=== PATIENT | male | born 1975 | race Caucasian/White ===

== ENCOUNTER 2019-07-05 11:10 | Emergency (ER) | payer MEDICARE | END 2019-07-05 11:58 | disposition home or self-care (01) | LOC: MADERS 11:10 | DX: L76.34 Postprocedural seroma of skin and subcutaneous tissue following other procedure (principal); S01.01XD Laceration without foreign body of scalp, subsequent encounter; S05.12XD Contusion of eyeball and orbital tissues, left eye, subsequent encounter; K21.9 Gastro-esophageal reflux disease without esophagitis; G62.9 Polyneuropathy, unspecified; F41.9 Anxiety disorder, unspecified; F17.290 Nicotine dependence, other tobacco product, uncomplicated; N19 Unspecified kidney failure; Z99.2 Dependence on renal dialysis; V89.2XXD Person injured in unspecified motor-vehicle accident, traffic, subsequent encounter | CPT/HCPCS: 99283 ==

== ENCOUNTER 2019-10-13 19:05 | Emergency (ER) | payer MEDICARE | END 2019-10-13 19:58 | disposition home or self-care (01) | LOC: MADERS 19:05 | DX: J30.2 Other seasonal allergic rhinitis (principal); H92.02 Otalgia, left ear; F41.9 Anxiety disorder, unspecified; F17.290 Nicotine dependence, other tobacco product, uncomplicated; Z79.899 Other long term (current) drug therapy | CPT/HCPCS: 99282 ==

== ENCOUNTER 2020-12-29 22:07 | Emergency (ER) | payer MEDICARE ==
[2020-12-29 23:34] LABS: #Basophils 0.1 thou/uL (0.0-0.2); #Eosinphils 0.2 thou/uL (0.0-0.7); #Lymphocytes 1.9 thou/uL (1.20-3.40); #Neutrophils 7.6 thou/uL (1.40-6.50); %Basophils 0.7 % (0.0-1.0); %Eosinophils 1.8 % (0.0-10.0); %Lymphocytes 17.4 % (21.0-51.0); %Monocytes 9.4 % (0.0-10.0); %Neutrophils 70.8 % (42.0-75.0); Hemoglobin 10.1 g/dL (14.0-18.0); Mean Corpuscular HGB CONC 32.2 g/dL (32.0-36.0); Mean Corpuscular Hemoglobin 31.4 pg (27.0-31.0); Mean Corpuscular Volume 97.7 fL (78.0-98.0); Mean Platelet Volume 6.6 fL (7.4-10.4); Platelet Count 218 thou/uL (130-400); RBC Distribution Width 13.5 % (11.5-14.5); White Blood Cell (WBC) Count 10.7 thou/uL (4.8-10.8)
[2020-12-29 23:51] LABS: ALT (SGPT) 11 U/L (8-55); AST (SGOT) 18 U/L (5-34); Albumin 3.8 g/dL (3.5-5.0); Anion Gap 22 mmol/L (10-20); BUN (Urea Nitrogen) 66 mg/dL (8.9-20.6); Bilirubin, Total 0.8 mg/dL (0.2-1.2); Calc. Creatinine Clearance 0 mL/min (70-130); Calcium 9.3 mg/dL (7.8-10.44); Carbon Dioxide 28 mmol/L (22-29); Chloride 93 mmol/L (98-107); Globulin 3.8 g/dL (2.4-3.5); Glucose 107 mg/dL (70-105); Potassium 5.4 mmol/L (3.5-5.1); Protein, Total 7.6 g/dL (6.0-8.3); Sodium 138 mmol/L (136-145)
[2020-12-29] MEDS ORDERED: HYDROcodone/Acetaminophen 10/325 mg Tablet ONE (23:55)
[2020-12-29] MEDS ORDERED: Clindamycin 150 MG CAP ONE (23:56)
[2020-12-30 00:19] LABS: Alkaline Phosphatase 89 U/L (40-110)
== END 2020-12-30 00:07 | disposition home or self-care (01) ==
LOC: MADERS 22:07
DX: L03.012 Cellulitis of left finger (principal); L03.011 Cellulitis of right finger; I13.2 Hypertensive heart and chronic kidney disease with heart failure and with stage 5 chronic kidney disease, or end stage renal disease; N18.6 End stage renal disease; I50.9 Heart failure, unspecified; K21.9 Gastro-esophageal reflux disease without esophagitis; E78.5 Hyperlipidemia, unspecified; I95.9 Hypotension, unspecified; G62.9 Polyneuropathy, unspecified; F17.290 Nicotine dependence, other tobacco product, uncomplicated; Z86.711 Personal history of pulmonary embolism; Z99.2 Dependence on renal dialysis
CPT/HCPCS: 36415; 71045; 80053; 83605; 85025; 87040